=== PATIENT | female | born 1970 | race Asian ===

== ENCOUNTER 2022-08-27 01:58 | Inpatient (IN) | payer OTHER, SELFPAY ==
[2022-08-27] VITALS (31 sets, daily range): BP systolic 95–172; BP diastolic 52–89; PULSE 50–78; RESP 14–16; TEMP 36.6–36.7; O2SAT 95–100; BMI 25.0; BMI 29.5
--- NOTE | 2022-08-27 02:02 | ED_ITS ---
HPI - General Adult General Time Seen by Provider: 02:03 Date Seen: 08/27/22 Chief complaint: Overdose Stated complaint: vomiting, dizzy Time Seen by Provider: 08/27/22 02:02 Source: patient, RN notes reviewed and old records reviewed Mode of arrival: ambulatory Limitations: no limitations History of Present Illness HPI narrative: 52-year-old female who comes in with an overdose. Patient reports taking a lot of Tylenol at about midnight, cannot tell me how me pause but most of a bottle. She presents with nausea, also feels lightheaded. She says she feels over whelmed with life in general, says she took the Tylenol and then started driving and was going to ?drive and drive until I passed out. ? Complains now of nausea and headache, did not vomit. Related Data Home Medications Medication Instructions Recorded Confirmed No Known Home Medications 08/27/22 08/27/22 Allergies Allergy/AdvReac Type Severity Reaction Status Date / Time No Known Drug Allergies Allergy Verified 08/27/22 02:26 Review of Systems Status of ROS: Reports: 10 or more systems reviewed and unremarkable except as noted in History and below [facility] Medical History (Updated 08/27/22 @ 05:26 by Darian Leon MD) No significant past medical history Surgical History (Updated 08/27/22 @ 02:51 by Abdi Chao RN) No significant past surgical history Social History Smoking Status: Never smoker Second hand tobacco smoke exposure: No How often do you have a drink containing alcohol: never How often do you have six or more drinks on one occasion: Never AUDIT-C Alcohol total score: 0 Non-prescribed substance use: denies use Exam Narrative: Exam Narrative: General: Well-developed and well-nourished, no acute distress Head: Atraumatic and normocephalic Eyes: Pupils are equal reactive, extraocular motions intact, conjunctiva clear ENT: External nose and ears are normal, posterior pharynx without erythema or exudate Neck: No midline cervical tenderness, full spontaneous range of motion the neck, trachea midline, no adenopathy Heart: Regular rate and rhythm no murmurs or thrills Lungs: Clear to auscultation bilaterally without wheezes or crackles Abdomen: Soft, epigastric tenderness,, nondistended with active bowel sounds Musculoskeletal: No tenderness, deformity, or edema Neurologic: Awake, alert, and oriented x3, no gross focal neurologic deficits, cranial nerves intact as tested Psych: Poor eye contact Skin: No rashes Const: Vital Signs, click to edit/add: Vital Signs - 24 hr 08/27/22 02:20 08/27/22 02:27 08/27/22 02:10 Temperature 98.0 F 98.0 F Pulse Rate Pulse Rate [Right Pulse Oximeter] 78 Respiratory Rate 16 Blood Pressure Blood Pressure [Ri ght Upper Arm] 120/69 Pulse Oximetry 99 96 Oxygen Delivery Me thod Room Air 08/27/22 02:36 08/27/22 03:37 08/27/22 03:30 Temperature 98.0 F Pulse Rate 63 55 L Pulse Rate [Right Pulse Oximeter] Respiratory Rate 16 16 Blood Pressure 101/73 98/57 L Blood Pressure [Ri ght Upper Arm] Pulse Oximetry 98 96 Oxygen Delivery Me thod 08/27/22 04:01 08/27/22 04:59 08/27/22 05:01 Temperature Pulse Rate 55 L 62 58 L Pulse Rate [Right Pulse Oximeter] Respiratory Rate 16 16 16 Blood Pressure 95/52 L 108/74 103/70 Blood Pressure [Ri ght Upper Arm] Pulse Oximetry 96 98 95 Oxygen Delivery Me thod 08/27/22 05:32 Temperature Pulse Rate 53 L Pulse Rate [Right Pulse Oximeter] Respiratory Rate 16 Blood Pressure 100/53 L Blood Pressure [Ri ght Upper Arm] Pulse Oximetry 97 Oxygen Delivery Me thod Course Course Hospital Course: Patient seen examined, , prior records reviewed. Patient initially presented with lightheadedness, nausea, abdominal pain. However, subsequently admitted to intentional overdose of Tylenol, feeling overwhelmed and depressed. Does not directly a door suicide ideation but intentional overdose with plan to drive and hoping that she would fall asleep or pass out while driving. Poor eye contact, flat affect. Labs ordered, will plan on 4 hour acetaminophen level and treatment based on that result. If level is not within the toxic range, patient can have A and R evaluation at that time. Holdable. Reevaluation(s) Reevaluation #1: Labs independently interpreted by me demonstrate negative salicylates, negative alcohol. Glucose elevated at 202, no metabolic acidosis, CBCs reassuring, hepatic function panel is normal in urine drug screen is negative. Initial Tylenol level 352 which is significantly elevated, however given time since ingestion does not fit did nomogram for treatment. Continue to monitor. Patient is noted to be a little hypotensive, also heart rate in the 50s. Patient is given a L fluid on initial arrival. Denies any other ingestion. Will continue to monitor. Time: 03:34 Reevaluation #2: Updated patient with findings, diagnosis and plan. Care discussed with Ave; hospitalist. Patient will be watched in the emergency department until staffing available for 1:1. Time: 05:57 Reevaluation #3: Repeat hepatic panel remains reassuring, basic panel reassuring and glucose is improved. Will continue to monitor closely. Time: 06:21 Vital Signs Vital signs: Initial Vital Signs Respiratory Effort Normal, Spontaneous, Non-Labored 08/27/22 02:00 Respiratory Depth Normal 08/27/22 02:00 Respiratory Pattern Normal 08/27/22 02:00 Vital Signs Pulse Oximetry 96 08/27/22 02:10 Temperature 98.0 F 08/27/22 03:37 Pulse Rate 53 L 08/27/22 05:32 Respiratory Rate 16 08/27/22 05:32 Blood Pressure 100/53 L 08/27/22 05:32 Pulse Oximetry 97 08/27/22 05:32 Oxygen Delivery Method Room Air 08/27/22 02:20 Medical Decision Making Medical Records Medical records reviewed: Yes I reviewed the patient's medical records Lab Data Lab results reviewed: Yes I reviewed the patient's lab results Labs: Lab Results 08/27/22 08/27/22 08/27/22 Range/Units 02:13 02:30 02:32 WBC 8.32 (4.50-11.00) K/uL RBC 4.42 (4.00-5.20) m/uL Hgb 13.2 (12.0-16.0) gm/dL Hct 39.6 (33.0-51.0) % MCV 90 (80-100) fL MCH 30 (26-34) pg MCHC 33 (32-36) gm/dL RDW Coeff of Tripp 11.8 (11.5-15.5) % Plt Count 213 (140-440) K/uL Neut % (Auto) 37.0 L (42.0-72.0) % Lymph % (Auto) 54.8 H (20-44) % Geary % (Auto) 5.5 (0.0-11.0) % Eos % (Auto) 1.6 (0.0-7.0) % Baso % (Auto) 0.5 (0.0-3.0) % Neut # (Auto) 3.10 (1.7-7.0) K/uL Lymph # (Auto) 4.60 H (0.90-2.90) K/uL Geary # (Auto) 0.50 (0.00-0.90) K/UL Eos # (Auto) 0.13 (0.00-0.50) K/uL Baso # (Auto) 0.04 (0.00-0.30) K/uL INR 1.01 (0.91-1.10) Sodium 138 (135-149) mmol/L Potassium 3.2 L (3.6-5.1) mmol/L Chloride 110 (96-114) mmol/L Carbon Dioxide 20 (20-32) mmol/L BUN 15 (7-30) mg/dL Creatinine 0.5 (0.5-1.5) mg/dL Estimated Creat Clear 115.74 Estimated GFR 111 ml/min Glucose 202 H (60-115) mg/dL Calcium 8.7 (8.4-10.6) mg/dL Magnesium 1.8 (1.5-2.6) mg/dL Total Bilirubin 1.1 (0.1-1.5) mg/dL Direct Bilirubin 0.2 (0.0-0.5) mg/dL AST 24 (12-35) U/L ALT 19 (4-35) U/L Alkaline Phosphatase 64 (40-150) U/L Total Protein 6.6 (6.0-8.3) g/dL Albumin 4.1 (3.3-5.0) g/dL TSH 7.010 H (0.270-4.20) uIU/mL Urine Color Yellow (Yellow) Urine Appearance Clear (Clear) Urine pH 5.5 (5.0-8.5) Ur Specific [place] 1.020 (1.000-1.030) Urine Protein Negative (Negative) Urine Glucose (UA) Negative (Negative) Urine Ketones 2+ A (Negative) Urine Blood Negative (Negative) Urine Nitrite Negative (Negative) Urine Bilirubin Negative (Negative) Urine Urobilinogen 0.2 (0.2-1.0) Ur Leukocyte Esterase Negative (Negative) Salicylates < 1.0 L (1.0-10) mg/dL Urine Opiates Screen Negative (Negative) Ur Oxycodone Screen Negative (Negative) Urine Methadone Screen Negative (Negative) Ur Propoxyphene Screen Negative (Negative) Acetaminophen 352.0 H* (10.0-30.0) ug/mL Ur Barbiturates Screen Negative (Negative) U Tricyclic Antidepress Negative (Negative) Ur Phencyclidine Scrn Negative (Negative) Ur Amphetamines Screen Negative (Negative) U Methamphetamines Scrn Negative (Negative) U Benzodiazepines Scrn Negative (Negative) Urine Cocaine Screen Negative (Negative) U Marijuana (THC) Screen Negative (Negative) Ur Drug Screen Comment See Note Ethyl Alcohol < 0.01 L (0.01-0.03) % SARS-CoV-2 (PCR) Negative SARS-CoV-2 (Negative) 08/27/22 Range/Units 05:05 WBC (4.50-11.00) K/uL RBC (4.00-5.20) m/uL Hgb (12.0-16.0) gm/dL Hct (33.0-51.0) % MCV (80-100) fL MCH (26-34) pg MCHC (32-36) gm/dL RDW Coeff of Tripp (11.5-15.5) % Plt Count (140-440) K/uL Neut % (Auto) (42.0-72.0) % Lymph % (Auto) (20-44) % Geary % (Auto) (0.0-11.0) % Eos % (Auto) (0.0-7.0) % Baso % (Auto) (0.0-3.0) % Neut # (Auto) (1.7-7.0) K/uL Lymph # (Auto) (0.90-2.90) K/uL [place] # (Auto) (0.00-0.90) K/UL Eos # (Auto) (0.00-0.50) K/uL Baso # (Auto) (0.00-0.30) K/uL INR (0.91-1.10) Sodium 139 (135-149) mmol/L Potassium 3.9 (3.6-5.1) mmol/L Chloride 112 (96-114) mmol/L Carbon Dioxide 21 (20-32) mmol/L BUN 13 (7-30) mg/dL Creatinine 0.5 (0.5-1.5) mg/dL Estimated Creat Clear 115.74 Estimated GFR 111 ml/min Glucose 101 (60-115) mg/dL Calcium 8.3 L (8.4-10.6) mg/dL Magnesium (1.5-2.6) mg/dL Total Bilirubin 0.8 (0.1-1.5) mg/dL Direct Bilirubin 0.2 (0.0-0.5) mg/dL AST 24 (12-35) U/L ALT 18 (4-35) U/L Alkaline Phosphatase 50 (40-150) U/L Total Protein 6.2 (6.0-8.3) g/dL Albumin 3.7 (3.3-5.0) g/dL TSH (0.270-4.20) uIU/mL Urine Color (Yellow) Urine Appearance (Clear) Urine pH (5.0-8.5) Ur Specific [place] (1.000-1.030) Urine Protein (Negative) Urine Glucose (UA) (Negative) Urine Ketones (Negative) Urine Blood (Negative) Urine Nitrite (Negative) Urine Bilirubin (Negative) Urine Urobilinogen (0.2-1.0) Ur Leukocyte Esterase (Negative) Salicylates (1.0-10) mg/dL Urine Opiates Screen (Negative) Ur Oxycodone Screen (Negative) Urine Methadone Screen (Negative) Ur Propoxyphene Screen (Negative) Acetaminophen 274.0 H* (10.0-30.0) ug/mL Ur Barbiturates Screen (Negative) U Tricyclic Antidepress (Negative) Ur Phencyclidine Scrn (Negative) Ur Amphetamines Screen (Negative) U Methamphetamines Scrn (Negative) U Benzodiazepines Scrn (Negative) Urine Cocaine Screen (Negative) U Marijuana (THC) Screen (Negative) Ur Drug Screen Comment Ethyl Alcohol (0.01-0.03) % SARS-CoV-2 (PCR) (Negative) ECG Data Attestation: I personally reviewed and interpreted this ECG as follows: Prior ECG tracings: not available for review Interpretation: The independently interpreted by me performed at 2:26 a.m. demonstrates sinus bradycardia rate 59, right axis deviation, no acute ST elevations or depressions, normal intervals, OK 150, QTC 479. No prior for comparison. Critical Care Time Critical Care Time Critical Care Time: Yes (Tylenol overdose, N-acetylcysteine and hospitalization) Attestation: The patient required my highest level preparedness to intervene emergently and I personally spent this critical care time directly and personally managing the patient. This critical care time included: Obtaining a history; Examining the patient; Pulse oximetry; Ordering and reviewing of studies; Arranging urgent treatment with development of a management plan; Evaluation of patients response to treatment; Frequent reassessment discussions with other providers. This critical care time was performed to assess and manage the high probability of imminent life-threatening deterioration that could result in multiorgan failure. It was exclusive of separate billable procedures and treating other patients and teaching time. Total Critical Care Time in Minutes: 40 Discharge Plan Discharge Clinical Impression: Intentional acetaminophen overdose Patient Disposition: Admitted As Inpatient Condition: Stable
[2022-08-27 02:20] LABS: Basophils Absolute Auto 0.04 K/uL (0.00-0.30); Basophils Percent Auto 0.5 % (0.0-3.0); Eosinophils Absolute Auto 0.13 K/uL (0.00-0.50); Eosinophils Percent Auto 1.6 % (0.0-7.0); Hematocrit 39.6 % (33.0-51.0); Hemoglobin* 13.2 gm/dL (12.0-16.0); Immature Granulocytes Abs Auto 0.05 K/uL (0.00-0.30); Immature Granulocytes Pct Auto 0.6 %; Lymphocytes Percent Auto 54.8 % (20-44); Mean Corpuscular HGB Conc 33 gm/dL (32-36); Mean Corpuscular Hemoglobin 30 pg (26-34); Mean Corpuscular Volume 90 fL (80-100); Monocytes Percent Auto 5.5 % (0.0-11.0); Platelet Count* 213 K/uL (140-440); RDW Coefficient of Variation % 11.8 % (11.5-15.5); Red Blood Count 4.42 m/uL (4.00-5.20); White Blood Count* 8.32 K/uL (4.50-11.00)
[2022-08-27 02:22] LABS: Slide Review Reflex No
[2022-08-27] MEDS: ONDANSETRON 2 MG/ML inj 4 MG IVP ×2 (02:25→05:02)
[2022-08-27] MEDS: KETOROLAC 15 MG/ML inj IVP (02:27)
[2022-08-27] MEDS: 0.9 % SODIUM CHLORIDE 1000 ml 1,000 ML IV ×2 (02:30→06:10)
--- NOTE | 2022-08-27 02:30 | ED.NURSE ---
pt. changed into paper scrubs and belongings inventoried and placed in locked med room.
[2022-08-27 02:33] LABS: Albumin* 4.1 g/dL (3.3-5.0); Chloride* 110 mmol/L (96-114)
[2022-08-27 02:34] LABS: Potassium* 3.2 mmol/L (3.6-5.1); Sodium* 138 mmol/L (135-149)
[2022-08-27 02:36] LABS: Alkaline Phosphatase* 64 U/L (40-150); Aspartate Amino Transferase* 24 U/L (12-35); Bilirubin Direct* 0.2 mg/dL (0.0-0.5); Bilirubin Total* 1.1 mg/dL (0.1-1.5); Blood Urea Nitrogen* 15 mg/dL (7-30); Carbon Dioxide* 20 mmol/L (20-32); Creatinine* 0.5 mg/dL (0.5-1.5); Est. Creatinine Clearance* 115.74; Estimated Glomerular Filt Rate 111 ml/min; Glucose* 202 mg/dL (60-115); Total Protein* 6.6 g/dL (6.0-8.3)
[2022-08-27 02:37] LABS: Alanine Aminotransferase* 19 U/L (4-35); Calcium* 8.7 mg/dL (8.4-10.6); Magnesium* 1.8 mg/dL (1.5-2.6)
[2022-08-27 02:41] LABS: Ethanol* < 0.01 % (0.01-0.03); Salicylate* < 1.0 mg/dL (1.0-10)
[2022-08-27 02:55] LABS: Amphetamine Screen Urine Negative (Negative); Barbiturate Screen Urine Negative (Negative); Benzodiazepines Screen Urine Negative (Negative); Cannabinoid Screen Urine Negative (Negative); Cocaine Screen Urine Negative (Negative); Methadone Screen Urine Negative (Negative); Methamphetamines Screen Urine Negative (Negative); Opiate Screen Urine Negative (Negative); Oxycodone Screen Urine Negative (Negative); Phencyclidine Screen Urine Negative (Negative); Tricyclic Antidepressant Urine Negative (Negative)
[2022-08-27 02:56] LABS: Appearance Urine Clear (Clear); Bilirubin Urine Negative (Negative); Blood Urine Negative (Negative); Color Urine Yellow (Yellow); Glucose Urine Negative (Negative); Ketones Urine 2+ (Negative); Leukocyte Esterase Urine Negative (Negative); Nitrite Urine Negative (Negative); Protein Urine Negative (Negative); Urobilinogen Urine 0.2 (0.2-1.0); pH Urine 5.5 (5.0-8.5)
[2022-08-27 03:27] LABS: SARS PCR* Negative SARS-CoV-2 (Negative)
[2022-08-27 06:09] LABS: Albumin* 3.7 g/dL (3.3-5.0); Chloride* 112 mmol/L (96-114); Sodium* 139 mmol/L (135-149)
[2022-08-27 06:10] LABS: Potassium* 3.9 mmol/L (3.6-5.1)
[2022-08-27 06:12] LABS: Alanine Aminotransferase* 18 U/L (4-35); Alkaline Phosphatase* 50 U/L (40-150); Aspartate Amino Transferase* 24 U/L (12-35); Bilirubin Direct* 0.2 mg/dL (0.0-0.5); Bilirubin Total* 0.8 mg/dL (0.1-1.5); Blood Urea Nitrogen* 13 mg/dL (7-30); Carbon Dioxide* 21 mmol/L (20-32); Creatinine* 0.5 mg/dL (0.5-1.5); Est. Creatinine Clearance* 115.74; Estimated Glomerular Filt Rate 111 ml/min; Glucose* 101 mg/dL (60-115); Total Protein* 6.2 g/dL (6.0-8.3)
[2022-08-27 06:13] LABS: Calcium* 8.3 mg/dL (8.4-10.6)
[2022-08-27 06:22] LABS: Prothrombin Time 13.9 Seconds
[2022-08-27 06:23] LABS: INR 1.01 (0.91-1.10)
--- NOTE | 2022-08-27 07:26 | ED.NURSE ---
Pt brought to the bathroom in wheelchair. Pt is unsteady on her feet but is able to stand and pivot independently. Pt reports having a BM and some emesis while in restroom. Pt brought back to room in wheelchair. IV infusion complete, specification writer attempted to flush IV in pt L hand, unable to flush and pt complained of pain when attempting to flush. IV dc'd catheter intact. notified.
--- NOTE | 2022-08-27 07:37 | ED.NURSE ---
Pt's called to inquire about pt. Pt states she does not want her to know she is here. Metal Loader informed pt's there is no pt here by that name.
--- NOTE | 2022-08-27 07:53 | W.PC.EDHO ---
Primary Language: Hebrew Preferred Language: Orientation Status: [x] Alert & Oriented [] Slight Confusion [] Known Dx Dementia Transfers By: x Assist of 1 [] Assist of 2 [] Lift Active Medications Discontinued Medications Generic Name Dose Route Start Last Admin Trade Name Freq PRN Reason Stop Dose Admin Sodium Chloride 1,000 mls @ 1,000 mls/hr 08/27/22 02:15 08/27/22 03:28 0.9 % Sodium Chloride 1000 Ml IV 08/27/22 03:14 Infused .Q1H RAF Infusion Acetylcysteine 3,400 mg/ 517 mls @ 129.25 mls/hr 08/27/22 06:41 08/27/22 07:51 Dextrose IVPB 08/27/22 06:42 129.25 mls/hr ONCE ONE Administration Acetylcysteine 10,210 mg/ 251.05 mls @ 251.05 mls/hr 08/27/22 05:38 08/27/22 07:30 Dextrose IVPB 08/27/22 05:39 Infused ONCE ONE Infusion Sodium Chloride 1,000 mls @ 1,000 mls/hr 08/27/22 06:00 08/27/22 07:10 0.9 % Sodium Chloride 1000 Ml IV 08/27/22 06:59 Infused .Q1H RAF Infusion Ketorolac Tromethamine 15 mg 08/27/22 02:08 08/27/22 02:27 Ketorolac 15 Mg/Ml Inj IVP 08/27/22 02:09 15 mg ONCE ONE Administration Ondansetron HCl 4 mg 08/27/22 02:08 08/27/22 02:25 Ondansetron 2 Mg/Ml Inj IVP 08/27/22 02:09 4 mg ONCE ONE Administration Ondansetron HCl 4 mg 08/27/22 04:58 08/27/22 05:02 Ondansetron 2 Mg/Ml Inj IVP 08/27/22 04:59 4 mg ONCE ONE Administration Description of Symptoms ED Triage Present Problem CC: Overdose, Abdominal Pain, Nausea/Vomiting Description pt. unsure how much tylenol she took. she guess maybe 30 tab (500mg) from midnight-1. c/o upper abdominal pain and n/v. when asked why she took so many tylenol, pt. stated life is the problem. pt. would no elborate anymore. pt. lives with family. pt. denies taking any other medications or illegal drugs. has never been hospitalized before for mental health. no diagnoses for mental health. poison control contacted and recommened doing lft's around 0500 and treat symptoms as needed. if tylenol level > 135, then will treat. will do DEC assessment when medically cleared. ED Triage Date of Onset of 08/27/22 Symptoms Female History Patient No [place] Coma Scale [place] coma scale total score 15 Pain Pain Description [Upper Acute Abdomen] Pain Description [Upper Acute Abdomen] Pain Description Acute Pain Description Acute Pain Intensity [Upper Abdomen] 4 Pain Intensity [Upper Abdomen] 4 Pain Intensity 2 Pain Intensity 2 Pain Intensity 2 Pain Intensity 4 Pain Intensity 4 Pain Intensity 4 Pain Scale Used [Upper Abdomen Numeric (1 - 10) ] Pain Scale Used [Upper Abdomen Numeric (1 - 10) ] Pain Scale Used Numeric (1 - 10) Pain Scale Used Numeric (1 - 10) Pain Scale Used Numeric (1 - 10) Pain Scale Used Numeric (1 - 10) Pain Scale Used Numeric (1 - 10) Pain Scale Used Numeric (1 - 10) Pain Frequency Frequent Pain Frequency Frequent IV Insertion/Site Date of IV Line Insertion [ 08/27/22 Left Antecubital] Date of IV Line Insertion [ DC'd Left Hand] Date of IV Line Insertion [ 08/27/22 Left Hand] Oxygen Administration Pulse Oximetry 100 Pulse Oximetry 100 Pulse Oximetry 98 Pulse Oximetry 97 Pulse Oximetry 98 Pulse Oximetry 98 Pulse Oximetry 97 Pulse Oximetry 97 Pulse Oximetry 95 Pulse Oximetry 98 Pulse Oximetry 96 Pulse Oximetry 96 Pulse Oximetry 98 Pulse Oximetry 99 Pulse Oximetry 96 Oxygen Delivery Method Room Air Cardiac Monitoring EKG Method 12 Lead EKG Method 12 Lead Pulse for EKG 59
--- NOTE | 2022-08-27 09:40 | ED.NURSE ---
Report called to M/S RN.
[2022-08-27] MEDS: LORazepam 2 MG/ML inj IVP ×2 (11:30→21:07)
[2022-08-27] MEDS: SODIUM CHLORIDE 0.9 % (FLUSH) 10 ML SYRINGE 5 ML IVF ×2 (11:30→21:07)
--- NOTE | 2022-08-27 13:47 | P.IMHP_ITS ---
Hospitalist- H&P: HPI History of Present Illness Date Seen: 08/27/22 Chief complaint: vomiting, dizzy Narrative: ADMISSION HISTORY AND PHYSICAL - HOSPITALIST Chief Complaint: Tylenol overdose, I feel terrible HPI: 52 y/o [place]oc[place] female presents with suicidal attempt. She took a ?large? number of Tylenol between 11:30 p.m. and 12:00 a.m. on 08/26/2022. She [place] her home in [place] of [place] drive [place]. When her nausea, abdominal pain and tingling of her lips reached a crescendo she brought herself to the emergency room at the [facility]. She described feeling overwhelmed with her life, that everything had been her fault and all she wanted was to . 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 She to her [place] for many years. They have 4 children. She has never attempted suicide before. She has never had any mental health admissions. At one point she took Zoloft for some mild depression but she would not categorize herself as having a major mood disorder ever in her life. She is otherwise he althy. She denies any recreational drug use, abuse of any opioids or controlled medications. She takes no prescribed medications. ER COURSE: Our [facility] protocol was began at approximately 2:00 a.m. with an initial acetaminophen level of 352 mg per L. This was at approximately 2:30 a.m. at 08/27/2022. Her next level at 5:00 a.m. this morning, 08/27/2022 was 274. Her 8am level was 184. She has had significant nausea and vomiting. Headache. CODE STATUS: FULL CODE EMERGENCY CONTACT PLAN: HER DAUGHTER FAITH I've updated the [facility], medications and allergies in the [facility] tabs. INVESTIGATIONS: LABS/MICRO/ECG/IMAGING 141/87. PULSE 52. RESPIRATORY 16 TEMP 97.8? O2 SAT 100% ON ROOM AIR I electrolytes are unremarkable. LFTs are unremarkable. TSH 7.0. 2+ ketones. Acetaminophen levels as are described above No imaging No microbiology Sinus bradycardia on EKG REVIEW OF SYSTEMS: 12-point ROS completed with patient and negative unless otherwise stated in HPI or below. PHYSICAL EXAM: CODE STATUS: Full code CONSTITUTIONAL: Resting comfortably when I enter the room. She is able to be on point and very insightful regarding all of her life issues. VITAL SIGNS: see record. HEENT: Normocephalic, atraumatic. PERRL, EOMI, conjunctivae pink, no scleral icterus. Ears and nose externally normal. Pharynx normal. NECK: No JVD. No carotid bruit, no thyromegaly, no adenopathy. CHEST: Clear to auscultation bilaterally HEART: S1 and S2 normal. No harsh murmurs. Edema MUSCULOSKELETAL: No gross joint deformity or swelling. NEURO: Cranial nerves intact. Grossly intact. No asymmetric findings. SKIN: No rashes, petechiae, concerning changes PSYCHIATRIC: Reflective. Depressed. 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 Nonsmoker. No drug use. 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) Smoking Status: Never smoker Second hand tobacco smoke exposure: No How often do you have a drink containing alcohol: never How often do you have six or more drinks on one occasion: Never AUDIT-C Alcohol total score: 0 Non-prescribed substance use: denies use Caffeine: Yes (tea-black) service: No Meds Home Medications and Allergies Home Medications Medication Instructions Recorded Confirmed Type No Known Home Medications 08/27/22 08/27/22 History Allergies Allergy/AdvReac Type Severity Reaction Status Date / Time No Known Drug Allergies Allergy Verified 08/27/22 02:26 Exam Const: Vital Signs, click to edit/add: Vital Signs - 24 hr 08/27/22 02:20 08/27/22 02:27 08/27/22 02:10 Temperature 98.0 F 98.0 F Pulse Rate Pulse Rate [Right Brachial] Pulse Rate [Right Pulse Oximeter] 78 Respiratory Rate 16 Blood Pressure Blood Pressure [Ri ght Arm] Blood Pressure [Ri ght Upper Arm] 120/69 Pulse Oximetry 99 96 Oxygen Delivery Me thod Room Air 08/27/22 02:36 08/27/22 03:37 08/27/22 03:30 Temperature 98.0 F Pulse Rate 63 55 L Pulse Rate [Right Brachial] Pulse Rate [Right Pulse Oximeter] Respiratory Rate 16 16 Blood Pressure 101/73 98/57 L Blood Pressure [Ri ght Arm] Blood Pressure [Ri ght Upper Arm] Pulse Oximetry 98 96 Oxygen Delivery Me thod 08/27/22 04:01 08/27/22 04:59 08/27/22 05:01 Temperature Pulse Rate 55 L 62 58 L Pulse Rate [Right Brachial] Pulse Rate [Right Pulse Oximeter] Respiratory Rate 16 16 16 Blood Pressure 95/52 L 108/74 103/70 Blood Pressure [Ri ght Arm] Blood Pressure [Ri ght Upper Arm] Pulse Oximetry 96 98 95 Oxygen Delivery Ne thod 08/27/22 05:32 08/27/22 09:45 08/27/22 06:05 Temperature Pulse Rate 53 L 51 L Pulse Rate [Right Brachial] Pulse Rate [Right Pulse Oximeter] 60 Respiratory Rate 16 Blood Pressure 100/53 L Blood Pressure [Ri ght Arm] Blood Pressure [Ri ght Upper Arm] Pulse Oximetry 97 98 97 Oxygen Delivery [facility] Room Air 08/27/22 06:30 08/27/22 06:35 08/27/22 07:00 Temperature Pulse Rate 52 L 58 L 64 Pulse Rate [Right Brachial] Pulse Rate [Right Pulse Oximeter] Respiratory Rate Blood Pressure Blood Pressure [Ri ght Arm] Blood Pressure [Ri ght Upper Arm] Pulse Oximetry 98 98 97 Oxygen Delivery Me thod 08/27/22 07:05 08/27/22 07:21 08/27/22 07:30 Temperature Pulse Rate 70 60 60 Pulse Rate [Right Brachial] Pulse Rate [Right Pulse Oximeter] Respiratory Rate Blood Pressure 115/58 L Blood Pressure [Ri ght Arm] Blood Pressure [Ri ght Upper Arm] Pulse Oximetry 98 100 100 Oxygen Delivery Ne thod 08/27/22 08:00 08/27/22 08:30 08/27/22 09:46 Temperature Pulse Rate 68 62 Pulse Rate [Right Brachial] Pulse Rate [Right Pulse Oximeter] Respiratory Rate Blood Pressure 172/89 H Blood Pressure [Ri ght Arm] Blood Pressure [Ri ght Upper Arm] Pulse Oximetry 98 98 Oxygen Delivery Me thod 08/27/22 10:35 08/27/22 10:44 08/27/22 10:44 Temperature 97.8 F 97.8 F Pulse Rate Pulse Rate [Right Brachial] 52 L 52 L Pulse Rate [Right Pulse Oximeter] Respiratory Rate 16 16 Blood Pressure Blood Pressure [Ri ght Arm] 141/87 H 141/87 H Blood Pressure [Ri ght Upper Arm] Pulse Oximetry 100 100 100 Oxygen Delivery Me thod Room Air Room Air Room Air 08/27/22 11:00 08/27/22 10:10 08/27/22 10:10 Temperature Pulse Rate 57 L Pulse Rate [Right Brachial] Pulse Rate [Right Pulse Oximeter] Respiratory Rate Blood Pressure Blood Pressure [Ri ght Arm] Blood Pressure [Ri ght Upper Arm] Pulse Oximetry 100 100 Oxygen Delivery Ne thod Room Air Hospitalist - H&P: Result Labs Labs: Short CBC 08/27/22 Range/Units 02:13 WBC 8.32 (4.50-11.00) K/uL Hgb 13.2 (12.0-16.0) gm/dL Hct 39.6 (33.0-51.0) % Plt Count 213 (140-440) K/uL BMP 08/27/22 08/27/22 02:13 05:05 Sodium 138 139 Potassium 3.2 L 3.9 Chloride 110 112 Carbon Dioxide 20 21 BUN 15 13 Creatinine 0.5 0.5 Glucose 202 H 101 Calcium 8.7 8.3 L Liver Function 08/27/22 08/27/22 Range/Units 02:13 05:05 Total Bilirubin 1.1 0.8 (0.1-1.5) mg/dL Direct Bilirubin 0.2 0.2 (0.0-0.5) mg/dL AST 24 24 (12-35) U/L ALT 19 18 (4-35) U/L Alkaline Phosphatase 64 50 (40-150) U/L Albumin 4.1 3.7 (3.3-5.0) g/dL Urine 08/27/22 Range/Units 02:30 Urine Color Yellow (Yellow) Urine Appearance Clear (Clear) Urine pH 5.5 (5.0-8.5) Ur Specific [place] 1.020 (1.000-1.030) Urine Protein Negative (Negative) Urine Glucose (UA) Negative (Negative) Assessment and Plan Assessment and plan (1) Intentional acetaminophen overdose: Problem comment: [facility] per protocol, acetaminophen level is down trending. Poison Control has been extremely helpful. [phone]. They recommend following LFTs and acetaminophen levels. 4 PM is our next lab draw. And then we will draw again at 1:00 a.m. to ensure that we are ready for completion of [facility]. DEC assessment to follow. At this point I am recommending inpatient psychiatric hospitalization. And I would recommend a hold if patient was not agreeable. Status: Acute (2) Suicidal ideation: Status: Chronic
--- NOTE | 2022-08-27 14:59 | PC.NURSE ---
shift note: vss stable. pt afeb. pt up to bsc. pt feeling tired and nauseated. pt received 0.5mg ativan with relief of nausea. LS clr. New IV started to Rt hand. IV to lt AC patent. pt 1:1 for shift
[2022-08-27] MEDS: 0.9 % SODIUM CHLORIDE 1000 ml 1,000 ML 75 ML IV (15:52)
[2022-08-27 16:02] LABS: Ionized Calcium* 1.17 mmol/L (1.11-1.30)
[2022-08-27 16:23] LABS: Albumin* 3.8 g/dL (3.3-5.0); Chloride* 109 mmol/L (96-114)
[2022-08-27 16:24] LABS: Potassium* 3.2 mmol/L (3.6-5.1); Sodium* 135 mmol/L (135-149)
[2022-08-27 16:26] LABS: Alanine Aminotransferase* 18 U/L (4-35); Alkaline Phosphatase* 41 U/L (40-150); Aspartate Amino Transferase* 21 U/L (12-35); Blood Urea Nitrogen* 7 mg/dL (7-30); Carbon Dioxide* 20 mmol/L (20-32); Creatinine* 0.5 mg/dL (0.5-1.5); Est. Creatinine Clearance* 92.39; Estimated Glomerular Filt Rate 111 ml/min; INR 1.08 (0.91-1.10); Prothrombin Time 14.6 Seconds; Total Protein* 6.4 g/dL (6.0-8.3)
[2022-08-27 16:27] LABS: Calcium* 8.5 mg/dL (8.4-10.6); Glucose* 113 mg/dL (60-115)
[2022-08-27 17:00] LABS: Troponin I* < 0.01 ng/mL (0.01-0.04)
--- NOTE | 2022-08-27 18:38 | PC.NURSE ---
End of shift. 3-7 pt has been pleasant. no pain. IV is patent and SL is patent, pt said yes to a suicide plan but did not say what it is . she is a 1 to 1 unit pt. she has tele and cont sao2 on. tele is sinus eun and cont Sao2 is above 93%, labs done @ 1545. pt talked to sister and daughter on home. with parameters set before using. penelope is located in the med room in pt medication bin. pt up to bsc. pt is not allowed to used the BR per md at this times. pt feeling tired and nauseated after eating but she did not want anything for it, she has been talking and engaging with staff. scds are on. she is eating drinking and voiding.
--- NOTE | 2022-08-27 23:10 | PC.NURSE ---
Shift Note [id number]: Shift unremarkable. Mucomyst infusing with maintenance fluids. Pt has been calm and cooperative. She did request her phone to make notes but was content with paper and crayons provided by magazine writer. Phone and personal belongings remains locked in med room at this time. Suicide precautions in place and pt remains under 1:1 supervision. Verbalized some anxiety near HS, pt was given 0.5 mg Ativan IVP. She now appears to be sleeping comfortably.
[2022-08-28 00:59] VITALS: BP 153/72; PULSE 65; RESP 16; TEMP 36.6; O2SAT 97
[2022-08-28 01:18] VITALS: PULSE 61
[2022-08-28 01:20] LABS: HCO3 VBG 23 mmol/L (21-28); PCO2 VBG 38 mmHG (40-50); PO2 VBG 45.1 mmHG (25-47); pH VBG 7.384 (7.32-7.43)
[2022-08-28 01:21] LABS: Hematocrit 37.6 % (33.0-51.0); Hemoglobin* 12.7 gm/dL (12.0-16.0); Mean Corpuscular HGB Conc 34 gm/dL (32-36); Mean Corpuscular Hemoglobin 30 pg (26-34); Mean Corpuscular Volume 89 fL (80-100); Platelet Count* 238 K/uL (140-440); Red Blood Count 4.21 m/uL (4.00-5.20); White Blood Count* 6.92 K/uL (4.50-11.00)
[2022-08-28 01:24] LABS: Slide Review Reflex No
[2022-08-28] MEDS: SODIUM CHLORIDE 0.9 % (FLUSH) 10 ML SYRINGE 5 ML IVF ×2 (01:28→08:50)
[2022-08-28] MEDS: LORazepam 2 MG/ML inj IVP (01:28)
[2022-08-28 01:36] LABS: Albumin* 3.6 g/dL (3.3-5.0)
[2022-08-28 01:37] LABS: Chloride* 113 mmol/L (96-114); Sodium* 142 mmol/L (135-149)
[2022-08-28 01:38] LABS: INR 1.08 (0.91-1.10); Prothrombin Time 14.7 Seconds
[2022-08-28 01:39] LABS: Aspartate Amino Transferase* 17 U/L (12-35); Bilirubin Total* 0.8 mg/dL (0.1-1.5); Carbon Dioxide* 22 mmol/L (20-32); Creatinine* 0.5 mg/dL (0.5-1.5); Est. Creatinine Clearance* 92.39; Estimated Glomerular Filt Rate 111 ml/min
[2022-08-28 01:40] LABS: Alanine Aminotransferase* 17 U/L (4-35); Alkaline Phosphatase* 42 U/L (40-150); Blood Urea Nitrogen* 6 mg/dL (7-30); Calcium* 8.5 mg/dL (8.4-10.6); Glucose* 109 mg/dL (60-115); Total Protein* 6.2 g/dL (6.0-8.3)
[2022-08-28 01:43] LABS: Acetaminophen* < 10.0 ug/mL (10.0-30.0)
--- NOTE | 2022-08-28 02:14 | PC.NURSE ---
0200: Spoke with Liset from [facility] about lab results. Verbal order to finish Acetylcysteine bag at current rate and then D/C.
[2022-08-28] MEDS: 0.9 % SODIUM CHLORIDE 1000 ml 1,000 ML 75 ML IV (04:19)
[2022-08-28 05:09] VITALS: BP 122/58; PULSE 69; RESP 18; TEMP 36.7; O2SAT 95
--- NOTE | 2022-08-28 06:43 | PC.NURSE ---
[id number]: Patient rested well during noc. PRN Ativan x1. See previous note regarding labs. Patient verbalized not really thinking about harming herself but has a lot of thoughts going through my head about everything. Pleasant and coopertative.
[2022-08-28 07:00] VITALS: BP 140/70; PULSE 65; PULSE 66; RESP 16; TEMP 36.5; O2SAT 97
[2022-08-28] MEDS: POTASSIUM CHLORIDE 10 MEQ CAPSULE ER 40 MEQ PO (08:49)
--- NOTE | 2022-08-28 09:20 | REH.OT ---
OT evaluation order cancelled per MD
--- NOTE | 2022-08-28 09:53 | REH.PT ---
PT Eval order cx per MD. No longer needed.
[2022-08-28 11:00] VITALS: BP 160/86; PULSE 64; RESP 16; TEMP 37; O2SAT 97
--- NOTE | 2022-08-28 12:10 | PM.DS1 ---
DS: Providers Provider Date Seen: 08/28/22 Date of admission: 08/27/22 09:50 Primary care physician: Not a Local Provider Admitting Clinician: Radha Murillo MD Consults: 08/27/22 02:53 Consult to [employer] [CONS] Urgent Comment: Reason for Consult:: Suicide Risk 08/27/22 10:20 Consult to [employer] [CONS] Routine Comment: Reason for Consult:: Social Service Consult Attending Physician on discharge: Radha Murillo MD Date of Discharge: 08/28/22 DS: Diagnosis Discharge Diagnosis (1) Intentional acetaminophen overdose: Status: Acute Problem details: completed Mucomyst protocol. Acetaminophen level undetectable. Medically cleared 2:00 a.m. on 08/28/2022. Mildly hypokalemic being replaced orally. This can be followed in inpatient psych. This is not a reason to hold up transfer. (2) Suicidal ideation: Status: Chronic Problem details: DEC assessment complete. 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 I would consider her high risk for re-attempt and completion of suicide. (3) Acute hypokalemia: Status: Acute Problem details: replacing orally; trend This is mild and should not hold transfer. DS: Summary Hospital Course Hospital Course: HOSPITALIST TRANSFER SUMMARY ATTENDING PHYSICIAN: Radha Murillo MD REASON FOR TRANSFER Intentional acetaminophen overdose Suicide attempt Mild hypokalemia BRIEF HOSPITAL COURSE: Dr. Theodore presented within 2-3 hours of her intentional acetaminophen overdose. Her initial acetaminophen level was 352 milligrams/liter. By 1:00 a.m. on 08/28/2022 the level was undetectable. Her liver enzymes remained normal the entire time. She was hemodynamically stable. Psychiatrically she appears anxious, overwhelmed. After medical clearance she was assessed by the DEC (behavioral health) team. Inpatient hospitalization for acute mental health crisis is being recommended. SERVICES NOT AVAILABLE HERE THAT THIS PATIENT NEEDS: Inpatient mental health Crisis services ACCEPTING PHYSICIAN/SERVICE/LOCATION: [facility] MEDICATIONS AT TIME OF TRANSFER: Oral potassium replacement DRIPS/LINES: None VITAL SIGN, MEDICATION, LAB/MICRO, IMAGING SUMMARY (full details available in account tabs or by records request) Stable. Mildly hypertensive. Potassium this morning 3.0 REVIEW OF SYSTEMS Unchanged. PHYSICAL EXAM: CONSTITUTIONAL: VITAL SIGNS: see record. Exam unchanged from earlier DISPOSITION: Inpatient psych Time spent on discharge >30 minutes. This includes speaking with accepting physician; family/patient and coordinating meds/drips for transfer Status at Discharge Functional status at discharge: independent ambulation Overall status at discharge: patient is not back to baseline Time Spent with Patient Time attestation: Total time spent providing and/or coordinating discharge services: Time spent: Greater than 30 minutes Exam Const: Vital Signs, click to edit/add: Vital Signs - 24 hr 08/27/22 13:00 08/27/22 15:28 08/27/22 15:28 Temperature 97.8 F Pulse Rate Pulse Rate [Right Brachial] 59 L Respiratory Rate 16 Blood Pressure [Ri ght Arm] 143/78 H Pulse Oximetry 98 98 98 Oxygen Delivery Me thod Room Air Room Air 08/27/22 15:00 08/27/22 15:00 08/27/22 15:00 Temperature 98.0 F Pulse Rate 50 L Pulse Rate [Right Brachial] 63 63 Respiratory Rate 14 14 Blood Pressure [Ri ght Arm] 146/77 H Pulse Oximetry 98 Oxygen Delivery Me thod Room Air 08/27/22 19:00 08/27/22 19:00 08/28/22 00:59 Temperature 98.0 F 98 F Pulse Rate Pulse Rate [Right Brachial] 63 72 65 Respiratory Rate 16 16 16 Blood Pressure [Ri ght Arm] 146/67 H 153/72 H Pulse Oximetry 96 97 Oxygen Delivery Me thod Room Air Room Air 08/27/22 23:26 08/27/22 23:28 08/28/22 01:18 Temperature Pulse Rate 61 Pulse Rate [Right Brachial] Respiratory Rate 16 Blood Pressure [Ri ght Arm] Pulse Oximetry 97 97 Oxygen Delivery Me thod Room Air 08/28/22 05:09 08/28/22 07:00 08/28/22 07:00 Temperature 98.0 F 97.7 F Pulse Rate Pulse Rate [Right Brachial] 69 66 Respiratory Rate 18 16 Blood Pressure [Ri ght Arm] 122/58 L 140/70 H Pulse Oximetry 95 97 97 Oxygen Delivery Me thod Room Air Room Air Room Air 08/28/22 07:00 08/28/22 11:00 Temperature 98.6 F Pulse Rate 65 Pulse Rate [Right Brachial] 64 Respiratory Rate 16 Blood Pressure [Ri ght Arm] 160/86 H Pulse Oximetry 97 Oxygen Delivery Me thod Room Air DS: Data Data Completed and Pending Labs on day of discharge: Labs from last 24 hours 08/28/22 08/27/22 01:00 15:54 WBC 6.92 RBC 4.21 Hgb 12.7 Hct 37.6 MCV 89 MCH 30 MCHC 34 Plt Count 238 INR 1.08 1.08 VBG pH 7.384 VBG pCO2 38 L VBG pO2 45.1 VBG HCO3 23 Sodium 142 135 Potassium 3.0 L 3.2 L Chloride 113 109 Carbon Dioxide 22 20 BUN 6 L 7 Creatinine 0.5 0.5 Estimated Creat Clear 92.39 92.39 Estimated GFR 111 111 Glucose 109 113 Calcium 8.5 8.5 Ionized Calcium Karen 1.17 Magnesium 2.0 Total Bilirubin 0.8 1.0 AST 17 21 ALT 17 18 Alkaline Phosphatase 42 41 Troponin I < 0.01 L Total Protein 6.2 6.4 Albumin 3.6 3.8 Acetaminophen < 10.0 L 31.0 H Discharge Plan Discharge Disposition: [facility] Date of Admission: 08/27/22 09:50 Primary Care Provider: Provider,Not a Local Condition: Stable Oxygen: No Urinary Catheter: No
--- NOTE | 2022-08-28 13:49 | PC.SOCIAL ---
Pt. has been accepted to [address] in [place] by Dr. Whitaker. Pt. was given information on [facility], [place].
--- NOTE | 2022-08-28 14:21 | PC.NURSE ---
Patient alert and oriented x 3. Lung sounds clear, bowel sounds active x 4 quadrants. Denies any nausea or abdominal pain. Low back pain, mild in nature and patient feels it is due to inactivity and staying in bed. Ambulates independently. Denies any plans of suicide. Reports mood as feeling somber and sad. Patient was very talkative throughout the shift, enjoyed talking about past trips. DEC assessment performed and recommendation for inpatient psych. Patient transferred to [address] at 1335 transported via EMS and accompained by ambulance personnel.
== END 2022-08-28 13:35 | DRG 918 ==
LOC: ED 07:45 → MEDSURG 10:13
PROVIDERS: Admitting Provider Family Medicine; Emergency Provider Family Medicine; Visit Provider Family Medicine
DX: T39.1X2A Poisoning by 4-Aminophenol derivatives, intentional self-harm, initial encounter (principal); T14.91XA Suicide attempt, initial encounter; R11.2 Nausea with vomiting, unspecified; R42 Dizziness and giddiness; R10.9 Unspecified abdominal pain; Y92.009 Unspecified place in unspecified non-institutional (private) residence as the place of occurrence of the external cause; Z62.810 Personal history of physical and sexual abuse in childhood; Z63.0 Problems in relationship with spouse or partner
CPT/HCPCS: 36415; 80048; 80053; 80076; 80143; 80179; 80306; 81003; 82077; 82330; 82803; 83735; 84443; 84484; 85025; 85027; 85610; 87635; 93005; 94761; 99285; 99291; A9270; J0132; J1885; J2060; J2405; J7030; J7050; J7070; J7120

== ENCOUNTER 2022-08-28 13:43 | Outpatient (CLI) | payer OTHER, SELFPAY | END 2022-08-28 13:44 | disposition home or self-care (01) | LOC: AMB 08-29 12:27 | PROVIDERS: Visit Provider Emergency Medicine Emergency Medical Services | DX: R45.851 Suicidal ideations (principal) | CPT/HCPCS: A0425; A0428 ==